=== PATIENT | female | born 1930 | race Caucasian/White ===

== ENCOUNTER 2017-09-01 16:37 | Emergency (ER) | payer MEDICARE, OTHER ==
[~2017-09-01] VITALS: Ht 149.9 cm; Wt 46.6 kg
[2017-09-01 16:39] VITALS: BP 159/73; PULSE 77; RESP 18; TEMP 98.3; O2SAT 97
[2017-09-01] MEDS ORDERED: CYAN100025 PO (17:19)
[2017-09-01] MEDS ORDERED: THERA-TEARS EACH EYE (17:19)
[2017-09-01] MEDS ORDERED: ALBU2TAB4 PO (17:19)
[2017-09-01] MEDS ORDERED: ALBU1AER5 INH (17:19)
[2017-09-01] MEDS ORDERED: FLINT2 PO (17:19)
[2017-09-01] MEDS ORDERED: ASPI81CH6 PO (17:19)
[2017-09-01] MEDS ORDERED: VALS320T6 PO (17:19)
[2017-09-01 17:52] VITALS: BP 168/82; PULSE 76; RESP 16; O2SAT 97
--- NOTE | 2017-09-01 17:56 | RADRPT ---
EXAM DATE/TIME: 09/01/2017 17:40 [place] COMPARISON: No previous studies available for comparison. INDICATIONS : Fell today, has right hip area pain MEDICAL HISTORY : Carcinoma, colon. SURGICAL HISTORY : Colon resection. ENCOUNTER: Initial ACUITY: 1 day PAIN SCORE: 10/10 LOCATION: Right hip FINDINGS: There is an oblique, minimally displaced fracture of the right superior pubic ramus. The bony pelvis otherwise appears intact. There is no fracture or subluxation of the right hip. Mild to moderate oste oarthritis noted. CONCLUSION: Minimally displaced right superior pubic ramus fracture. Proximal right femur intact. Arnold Dias MD on September 01, 2017 at 17:52 Board Certified Radiologist. This report was verified electronically.
[2017-09-01] MEDS ORDERED: ACETAMINOPHEN/HYDROcodone 325 MG/5 MG TAB PO ONE (18:15)
[2017-09-01] MEDS ORDERED: NORC5TAB PO (18:23)
--- NOTE | 2017-09-01 18:23 | PD ---
HPI Chief Complaint: Musculoskeletal Complaint Time Seen by Provider: 17:16 Travel History International Travel<30 days: No Contact w/Intl Traveler<30days: No Traveled to known affect area: No History of Present Illness HPI Patient is an 87-year-old female presents emergency department sometime after a trip and fall leading to right hip pain. Patient states she simply lost her balance fell forward and landed on her right hip, she said some right hip pain ever since. She states after the fall she was able to walk half a mile. She went to an urgent care for center and had an x-ray of her pelvis which did show fractured she was referred to the emergency department for further management. She denies any knee pain and ankle pain head injury neck injury back injury chest injury abdomen injury upper extremity injury or left lower extremity injury. She states her pain is only mild until she tries to bear weight on in which case he gets a lot worse, right hip, context as above, associated signs symptoms as above. 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) Cardiovascular Problems: Yes Hypertension: Yes Medical other: Yes (LACTOSE INTOLERANCE, IBS) Tetanus Vaccination: > 5 Years Influenza Vaccination: Yes ?: Not Dilation and Curettage (D&C): Yes Past Surgical History Eye Surgery: Yes (CATARACT) Thoracic Surgery: Yes (BREAST CYST REMOVAL-1970) Other Surgery: Yes (SECTION OF BOWEL REMOVED-COLON CA.) Social History Alcohol Use: Yes (WINE EVERY EVENING) Tobacco Use: No Substance Use: No Allergies-Medications (Allergen,Severity, Reaction): Coded Allergies: No Known Allergies (Verified Allergy, Mild, 09/01/17) Reported Meds & Prescriptions Reported Meds & Active Scripts Active Wayne (Hydrocodone-Acetaminophen) 5 Mg-325 Mg Tab 1 Tab PO Q6H PRN Reported Proair Respiclick Inh (Albuterol Sulfate) 90 Mcg/Act Aerp 1 Puff INH Q4H PRN Albuterol (Albuterol Sulfate) 2 Mg Tab 2 Mg PO TID [Thera-Tears] Unknown Dose EACH EYE Valsartan-Hydrochlorothiazide 320-25 Mg Tab 1 Tab PO DAILY Aspirin Low Dose (Aspirin) 81 Mg Chew 81 Mg PO DAILY B-12 (Cyanocobalamin) 1,000 Mcg Subl Unknown Dose PO EVERY OTHER DAY Flintstones Complete (Iron/Minerals/Multivitamins) 60 Mg Tab 60 Mg PO EVERY OTHER DAY Review of Systems Except as stated in HPI: all other systems reviewed are Neg Physical Exam Narrative GENERAL: Well-nourished, well-developed patient. Appears younger than stated age. SKIN: Focused skin assessment warm/dry. HEAD: Normocephalic. EYES: No scleral icterus. No injection or drainage. NECK: Supple, trachea midline. No JVD or lymphadenopathy. CARDIOVASCULAR: Regular rate and rhythm without murmurs, gallops, or rubs. RESPIRATORY: Breath sounds equal bilaterally. No accessory muscle use. GASTROINTESTINAL: Abdomen soft, non-tender, nondistended. MUSCULOSKELETAL: No cyanosis, or edema. Patient has no tenderness on internal/ external rotation of the right hip, no tenderness to palpation of the right hip , pelvis is stable, knees ankles or feet atraumatic. Upper extremities atraumatic, no midline CT or L-spine tenderness. Compartments are soft. pulses motor and sensory intact distally in all four extremities. BACK: Nontender without obvious deformity. No CVA tenderness. Data Data Last Documented VS Vital Signs Date Time Temp Pulse Resp B/P (MAP) Pulse Ox O2 Delivery O2 Flow Rate FiO2 09/01/17 18:53 80 16 177/82 (113) 98 Room Air 09/01/17 16:39 98.3 Orders Orders Hip, Uni(Ap&Lat) W Ap Pelvis (09/01/17 ) Acetamin-Hydrocod 325-5 Mg (Wayne 5-325 (09/01/17 18:15) Ed Discharge Order (09/01/17 18:59) MDM Medical Decision Making Medical Screen Exam Complete: Yes Emergency Medical Condition: Yes Differential Diagnosis Pelvic fracture, hip fracture, hip strain, hip contusion, pelvic contusion. Narrative Course Patient roomed in emergency department, she has disc with her unfortunately cannot loaded on my computers, x-ray was performed which did show a nondisplaced pubic rami fracture: Last 24 hours Impressions Hip and Pelvis X-Ray 09/01/17 0000 Signed Impressions: Service Date/Time: Friday, September 01, 2017 17:40 - CONCLUSION: Minimally displaced right superior pubic ramus fracture. Proximal right femur intact. Arnold Dias MD Discussed with patient whose abdomen is benign who appears well and was able ambulate on this that if she is able to ambulate again she needs consider going home for outpatient follow-up. Pain medicine given will continue to reassess. Patient is able to ambulate with some pain, her grandaughter is coming to pick her up as she was dropped off by her friend. Her granddaughter is apparently getting a walker for her and the patient will stay with her granddaughter benedicto. Discussed if she decides to go to her own home where she lives alone she needs to always have a nearby way to contact help should she have more limited mobility. She is stable for discharge and no indication for further workup at this time. She is still waiting for her ride at the end of my shift and was discussed with the oncoming provider in case family has other questions/ concerns on their arrival. Diagnosis Primary Impression: Pubic ramus fracture Med/Other Pt SpecificInfo: Prescription(s) given Scripts Hydrocodone-Acetaminophen (Wayne) 5 Mg-325 Mg Tab 1 TAB PO Q6H Y for PAIN, #12 TAB 0 Refills Prov: Elijah Jaeger MD 09/01/17 Disposition: 01 DISCHARGE HOME Condition: Stable Elijah Jaeger MD Sep 01, 2017 18:23
[2017-09-01 18:53] VITALS: BP 177/82; PULSE 80; RESP 16; O2SAT 98
== END 2017-09-01 19:22 | disposition home or self-care (01) ==
LOC: PHED 16:37
DX: S32.599A Other specified fracture of unspecified pubis, initial encounter for closed fracture (principal); I10 Essential (primary) hypertension; W01.0XXA Fall on same level from slipping, tripping and stumbling without subsequent striking against object, initial encounter
CPT/HCPCS: 73502; 99283